=== PATIENT | female | born 1965 | race Caucasian/White ===

== ENCOUNTER → 2016-06-27 | Outpatient (CLI) | payer BC ==
[~2016-06-27] MED LIST: AMBIEN10 MG PO; AMBIEN12.5 M1 PO; ATENOLOL PO; BENADRYL25 M3 PO; CIPRO; DIFLUCAN PO; DISCONTINUED MED; ESTRATEST TABLE1 TAB PO; FENTANYL; IGG SUBQ; IMITREX PO; IMMUNE GLOBULIN SUBCUTANEOUS; LAMICTAL PO; LEVAQUIN PO; NEURONTIN PO; NEURONTIN600 MG PO; NORCO 10-325 TA1 TAB PO; NORCO 10/325 TA1 TAB PO; PRILOSEC PO; SINGULAIR PO; VIVELLE-DO1 PATCH.B2 TD; ZYRTEC10 M1 PO; [UNRECOGNIZED DRUG - OTHER] TD
[2016-07-02 02:04] LABS: IMMUNOGLOBULIN A 98 mg/dL (81-463); IMMUNOGLOBULIN E 14 kU/L (<=114); IMMUNOGLOBULIN G 1124 mg/dL (694-1618); IMMUNOGLOBULIN M 111 mg/dL (48-271)
== END | disposition home or self-care (01) ==
LOC: CLAB 13:55
PROVIDERS: Allergy & Immunology
DX: J45.31 Mild persistent asthma with (acute) exacerbation (principal); J30.1 Allergic rhinitis due to pollen; D83.9 Common variable immunodeficiency, unspecified; J30.89 Other allergic rhinitis
CPT/HCPCS: 36415; 82784; 82785

== ENCOUNTER → 2016-07-01 | Outpatient (CLI) | payer BC | END | disposition home or self-care (01) | LOC: CLAB 11:22 | DX: J45.31 Mild persistent asthma with (acute) exacerbation (principal); D83.9 Common variable immunodeficiency, unspecified | CPT/HCPCS: 86317; 86648; 86774 ==

== ENCOUNTER → 2016-07-17 | Day surgery (SDC) | payer BC ==
--- NOTE | ~2016-07-17 | OR ---
Unit #: [id number] #: [id number] Patient: PARKER MAY [id number] [address] [address] [id number] O MR#: [id number] NAME: PARKER MAY. ROOM: Date of Procedure: 07/17/2016 Admission Date: 07/17/2016 Surgeon: Kwabena Busch M.D. : 1965 Attending Physician: Kwabena Busch M.D. Primary Care Physician: Nadiya hSeehan M.D. OPERATIVE REPORT PREOPERATIVE DIAGNOSES Radiculopathy, degenerative disk disease, spinal stenosis. POSTOPERATIVE DIAGNOSES Radiculopathy, degenerative disk disease, spinal stenosis. PROCEDURE PERFORMED Transforaminal epidural steroid injection with intravenous sedation and fluoroscopic guidance for needle localization. INDICATIONS FOR PROCEDURE The patient is a 50-year-old female with worsening right lower extremity pain felt to be due to right L6-S1 neural foraminal narrowing which is due to both bony and disk issues. The patient failed to settle with conservative treatment. Plan is for trial of transforaminal injection based on history, pathology, and symptomatology. DESCRIPTION OF PROCEDURE The patient was placed in a prone position. Standard monitors were applied. 4 mg of Versed were given for sedation and anxiolysis, which were adequate. Vital signs remained stable. Sterile prep and drape then of the lumbosacral area was performed. The skin then to the right of midline at the S1 level was localized with 1% lidocaine. A long 22-gauge Quincke point spinal needle was advanced with biplanar fluoroscopic guidance to bring the needle tip within the L6-S1 neural foramina. After confirming proper positioning with fluoroscopy and radiographic contrast, a dose of 80 mg of Depo-Medrol and 1 mL of 0.25% bupivacaine were deposited. The patient tolerated the procedure otherwise well and was discharged to the recovery room in stable condition. Dictated by... Hazel Werner/tmaia TD: 07/18/2016 00:57 JOB #: [id number] Unit #: [id number] #: [id number] Patient: PARKER MAY OPERATIVE REPORT Page 1 of 1 X Kwabena Busch MD X PROCEDURE OPERATIVE NOTE
== END | disposition home or self-care (01) ==
LOC: CCSC 08:10
DX: M51.16 Intervertebral disc disorders with radiculopathy, lumbar region (principal); M48.06 Spinal stenosis, lumbar region; G43.909 Migraine, unspecified, not intractable, without status migrainosus
CPT/HCPCS: J1040; J2250

== ENCOUNTER → 2016-12-04 | Day surgery (SDC) | payer OTHER ==
--- NOTE | ~2016-12-04 | OR ---
Unit #: [id number] #: [id number] Patient: PARKER MAY [id number] [address] [place], [place] [address] [id number] O MR#: [id number] NAME: PARKER MAY ROOM: Date of Procedure: 12/04/2016 Admission Date: 12/04/2016 Surgeon: Kwabena Busch M.D. : 1965 Attending Physician: Kwabena Busch M.D. Referring Physician: Kwabena Busch M.D. Primary Care Physician: Nadiya Sheehan M.D. OPERATIVE REPORT PREOPERATIVE DIAGNOSES Radiculopathy and lumbar facet spondylosis. POSTOPERATIVE DIAGNOSES Radiculopathy and lumbar facet spondylosis. PROCEDURE PERFORMED Transforaminal epidural steroid injection with intravenous sedation and fluoroscopic guidance for needle localization. INDICATIONS FOR PROCEDURE The patient is a 51-year-old female, who has had a return of right lower extremity pain. This was treated 5 months ago with a single transforaminal injection at right L6-S1 level where a workup had shown an ossific protrusion right facet into the right neural foramen causing moderate right neuroforaminal narrowing. She had resurgence of the pain. So, the plan is to repeat the injection. We did discuss this with the patient like chronicity of this issue and the consideration of talking to a neurosurgeon. We will try to facilitate that. DESCRIPTION OF PROCEDURE The patient was placed in a prone position. Standard monitors were applied. 4 mg of Versed were given for sedation and anxiolysis, which were adequate. Vital signs remained stable. Sterile prep and drape then of the lumbosacral area was performed. The skin then to the right of midline at the L6 level was localized with 1% lidocaine. A long 22-gauge Quincke point spinal needle was then advanced down into the right L6-S1 neural foramen. The patient did not complain of any pain or paresthesia. After confirming proper positioning with fluoroscopy, a dose of 80 mg of Depo-Medrol and 1 mL of 0.25% bupivacaine were deposited. The patient tolerated the procedure otherwise well and was discharged to the recovery room in stable condition. Dictated by... Kwabena Busch M.D. LHWillis/tamia TD: 12/05/2016 04:50 Unit #: [id number] #: [id number] Patient: PARKER MAY JOB #: [id number] OPERATIVE REPORT Page 1 of 1 X Kwabena Busch MD X PROCEDURE OPERATIVE NOTE
== END | disposition home or self-care (01) ==
LOC: CCSC 12-02 09:45
DX: M47.26 Other spondylosis with radiculopathy, lumbar region (principal); G43.909 Migraine, unspecified, not intractable, without status migrainosus; I10 Essential (primary) hypertension; Z88.1 Allergy status to other antibiotic agents; Z88.8 Allergy status to other drugs, medicaments and biological substances; Z79.899 Other long term (current) drug therapy
CPT/HCPCS: J1040; J2250